=== PATIENT | male | born 1965 | race Caucasian/White ===

== ENCOUNTER 2019-02-20 05:31 | Inpatient (IN) | payer OTHER | END 2019-02-21 11:34 | disposition home or self-care (01) | LOC: PAS IN 05:31 → ORTHO 4S 11:00 | PROC: 0SRC0L9 Replacement of Right Knee Joint with Medial Unicondylar Synthetic Substitute, Cemented, Open Approach (ICD-10-PCS; principal; 2019-02-20 07:17) | DX: M17.11 Unilateral primary osteoarthritis, right knee (principal) ==

== ENCOUNTER 2019-03-05 14:31 | Emergency (ER) | payer OTHER ==
[~2019-03-05] VITALS: Ht 182.9 cm; Wt 104.5 kg
[~2019-03-05 14:31] MED LIST: ASCO500C15 PO; ATOR10TA PO; LOSA50TA3 PO; WALKERFR
[2019-03-05 17:10] VITALS: BP 122/65
== END 2019-03-05 17:14 | disposition home or self-care (01) ==
LOC: ER 14:31
DX: R25.2 Cramp and spasm (principal); I10 Essential (primary) hypertension; G89.29 Other chronic pain; Z98.890 Other specified postprocedural states; Z88.1 Allergy status to other antibiotic agents; Z79.899 Other long term (current) drug therapy
CPT/HCPCS: 93971; 99284